=== PATIENT | female | born 2000 | race Two or more races ===

== ENCOUNTER 2023-12-13 15:16 | Emergency (ER) | payer OTHER ==
[~2023-12-13] VITALS: Ht 160 cm; Wt 74.8 kg
[~2023-12-13 15:16] MED LIST: FOLIC ACID0.8 M1 PO; PRENATAL + DHA1 EAC1 PO
[2023-12-13 17:33] LABS: HEMATOCRIT 35.2 % (36.0-45.00); HEMOGLOBIN 11.8 g/dL (12.0-15.00); MEAN CELL VOLUME 87.9 fL (80.00-100.00); MEAN CORPUSCULAR HEMOGLOBIN 29.6 pg (27.00-32.0); MEAN CORPUSCULAR HGB CONC 33.6 g/dl (32.0-36.0); PLATELET COUNT 234 K/uL (150-450); RED CELL DISTRIBUTION WIDTH 14.2 % (11.5-14.5)
[2023-12-13 17:50] LABS: INR 0.94; PARTIAL THROMBOPLASTIN TIME 27.1 SECONDS (22.0-34.0); PROTHROMBIN TIME 10.3 SECONDS (9.0-11.5)
[2023-12-13 17:54] LABS: ALBUMIN 2.7 gm/dL (3.4-5.0); BILIRUBIN TOTAL 0.22 mg/dL (0.3-1.2); CALCIUM 9.4 mg/dL (8.5-10.1); CREATININE SERUM 0.57 mg/dL (0.55-1.02); GFR 133.89; GLOBULINA 4.3 G/DL (2.4-3.5); POTASSIUM 4.35 mEq/L (3.5-5.1)
== END 2023-12-13 19:57 | disposition home or self-care (01) ==
LOC: ER 15:17
PROVIDERS: General Practice
DX: O26.892 Other specified pregnancy related conditions, second trimester (principal); Z3A.24 24 weeks gestation of pregnancy; R04.0 Epistaxis

== ENCOUNTER 2024-01-27 15:13 | Outpatient (CLI) | payer OTHER | END 2024-01-27 15:14 | disposition home or self-care (01) | LOC: PRENATAL 15:13 | PROVIDERS: ATTEND Obstetrics & Gynecology Maternal & Fetal Medicine | DX: O26.849 Uterine size-date discrepancy, unspecified trimester (principal); O36.8199 Decreased fetal movements, unspecified trimester, other fetus; Z3A.30 30 weeks gestation of pregnancy ==

== ENCOUNTER 2024-03-14 11:08 | Inpatient (IN) | payer OTHER ==
[~2024-03-14] VITALS: Ht 160 cm; Wt 3.2 kg
[2024-03-29 08:57] LABS: PH,URINE 6.5 (5.0-8.0); URINE APPEARANCE Clear; URINE BILIRRUBIN Negative (NEGATIVE); URINE BLOOD Negative; URINE COLOR Yellow; URINE GLUCOSE Negative (NEGATIVE); URINE KETONE Negative (NEGATIVE); URINE LEUKOCYTE Negative; URINE NITRATE Negative; URINE PROTEIN Negative (NEGATIVE); URINE UROBILINOGEN 0.2 E.U./dl
[2024-03-29 08:58] LABS: URINE BACTERIA 80.7 uL (0.0-1933); URINE EPITHELIAL CELLS 1.5 uL (0.0-38.8); URINE RBC 9.7 uL (0.0-20.8); URINE WBC 6.7 uL (0.0-23.2)
[2024-03-29 09:00] VITALS: BP 120/72
[2024-03-29] MEDS ORDERED: AMPICILLIN SODIUM 2,000 MG VIAL IV ONE (09:00)
[2024-03-29 09:02] LABS: HEMATOCRIT 36.6 % (36.0-45.00); HEMOGLOBIN 12.1 g/dL (12.0-15.00); MEAN CELL VOLUME 81.8 fL (80.00-100.00); PLATELET COUNT 202 K/uL (150-450); RED BLOOD COUNT 4.47 M/uL (4.00-6.00); RED CELL DISTRIBUTION WIDTH 15.5 % (11.5-14.5)
[2024-03-29] MEDS ORDERED: MISOPROSTOL 25 MCG/4 ML GEL.W.APPL VAG NR (09:15)
[2024-03-29 09:24] LABS: INR 0.94; PROTHROMBIN TIME 10.3 SECONDS (9.0-11.5)
[2024-03-29] MEDS ORDERED: RINGERS SOLUTION,LACTATED 1,000 ML IV SCH (14:15)
[2024-03-29] MEDS ORDERED: AMPICILLIN SODIUM 1,000 MG VIAL IV SCH (14:15)
[2024-03-29 14:25] VITALS: BP 124/69
[2024-03-29] MEDS ORDERED: MISOPROSTOL 25 MCG/4 ML GEL.W.APPL VAG ONE (14:35)
[2024-03-29 15:42] VITALS: BP 118/68
[2024-03-29 18:43] VITALS: BP 121/73
[2024-03-29] MEDS ORDERED: PROMETHAZINE HCL 50 MG/ML AMPUL IM PRN (22:15)
[2024-03-29] MEDS ORDERED: ERYTHROMYCIN BASE OPHT 1GM EACH TUBE OP ONE (22:15)
[2024-03-29] MEDS ORDERED: MEPERIDINE HCL/PF 50 MG/ML VIAL IM PRN (22:15)
[2024-03-29] MEDS ORDERED: OXYTOCIN 20 UNITS/1000ML RL PIGGYBAG IV ONE (22:15)
[2024-03-29] MEDS ORDERED: MORPHINE SULFATE 4 MG/ML VIAL IV ONE (23:55)
[2024-03-30] MEDS ORDERED: MORPHINE SULFATE 4 MG/ML VIAL IV ONE (02:30)
[2024-03-30 04:25] VITALS: BP 109/68
[2024-03-30 06:25] LABS: HEMATOCRIT 32.4 % (36.0-45.00); HEMOGLOBIN 10.7 g/dL (12.0-15.00); MEAN CELL VOLUME 82.3 fL (80.00-100.00); MEAN CORPUSCULAR HEMOGLOBIN 27.2 pg (27.00-32.0); MEAN CORPUSCULAR HGB CONC 33.1 g/dl (32.0-36.0); PLATELET COUNT 187 K/uL (150-450); RED BLOOD COUNT 3.94 M/uL (4.00-6.00); RED CELL DISTRIBUTION WIDTH 15.5 % (11.5-14.5)
[2024-03-30] MEDS ORDERED: OxyCODONE HCL/APAP UD (PERCOCET) PO PRN (08:00)
[2024-03-30 08:02] VITALS: BP 135/66
[2024-03-30] MEDS ORDERED: PNV,CALCIUM 72/IRON/FOLIC ACID 1 TAB TABLET PO SCH (09:00)
[2024-03-30] MEDS ORDERED: DOCUSATE SODIUM 100MG CAP PO SCH (09:00)
[2024-03-30] MEDS ORDERED: SIMETHICONE 125 MG CAPSULE PO SCH (09:00)
[2024-03-30 15:46] VITALS: BP 116/76
[2024-03-31 00:39] VITALS: BP 106/68
[2024-03-31 08:04] VITALS: BP 117/60
== END 2024-03-31 14:41 | disposition home or self-care (01) | DRG 788 ==
LOC: LDR 03-29 07:16 → OB/GYN 03-30 00:43 → LDR 04-03 11:07
PROVIDERS: ADMIT Obstetrics & Gynecology; ATTEND Obstetrics & Gynecology
PROC: 3E033VJ Introduction of Other Hormone into Peripheral Vein, Percutaneous Approach (ICD-10-PCS; 2024-03-29)
PROC: 3E0P7VZ Introduction of Hormone into Female Reproductive, Via Natural or Artificial Opening (ICD-10-PCS; 2024-03-29)
PROC: 4A1HXCZ Monitoring of Products of Conception, Cardiac Rate, External Approach (ICD-10-PCS; 2024-03-29)
PROC: 10D00Z1 Extraction of Products of Conception, Low, Open Approach (ICD-10-PCS; principal; 2024-03-29 22:45)
DX: O82 Encounter for cesarean delivery without indication (principal); Z3A.39 39 weeks gestation of pregnancy; Z37.0 Single live birth; Z20.822 Contact with and (suspected) exposure to COVID-19